=== PATIENT | female | born 1970 | race Caucasian/White ===

== ENCOUNTER 2016-10-18 02:36 | Emergency (ER) | payer OTHER ==
[2016-10-18 04:48] LABS: BASOPHIL 1.5 % (0-2); EOSINOPHIL 8.8 % (0-5); HGB 7.6 g/dl (12.5-16.0); LYMPHOCYTE 37.3 % (15-48); MCH 32.9 pg (25.0-31.0); MCHC 34.5 g/dL (32.0-36.0); MCV 95.2 fL (78.0-100.0); MONOCYTE 10.6 % (0-12); NEUTROPHIL 41.8 % (41-80); PLT 243 K/uL (150-400); RBC 2.31 M/uL (4.20-5.40); RDW 18.2 % (11.5-14.0); WBC 5.2 K/uL (4.0-10.5)
[2016-10-18 04:59] LABS: INR 1.08 (0.9-1.2); PROTHROMBIN TIME 13.6 SECONDS (11.7-14.0); PTT 29.7 SECONDS (23.2-31.4)
[2016-10-18 05:06] LABS: ALBUMIN 3.2 g/dL (3.5-5.0); BILIRUBIN - TOTAL 0.2 mg/dL (0.1-1.0); CREATININE 0.9 mg/dL (0.5-1.0); GLOBULIN (CALCULATION) 2.9 g/dL (2.2-4.2); POTASSIUM 3.2 mmol/L (3.5-5.1); TOTAL PROTEIN 6.1 g/dL (6.4-8.3)
== END 2016-10-18 07:32 | disposition home or self-care (01) ==
LOC: FER 02:36
PROVIDERS: Emergency Medicine Emergency Medical Services
DX: R60.0 Localized edema (principal); F10.20 Alcohol dependence, uncomplicated; D64.9 Anemia, unspecified; I10 Essential (primary) hypertension; E78.5 Hyperlipidemia, unspecified; Y90.8 Blood alcohol level of 240 mg/100 ml or more; Z86.73 Personal history of transient ischemic attack (TIA), and cerebral infarction without residual deficits; Z90.49 Acquired absence of other specified parts of digestive tract; Z88.1 Allergy status to other antibiotic agents; Z79.899 Other long term (current) drug therapy
CPT/HCPCS: 36415; 80053; 85025; 85610; 85730; G0480; J3420

== ENCOUNTER → 2016-11-22 | Day surgery (SDC) | payer OTHER ==
[~2016-11-22] VITALS: Ht 170.2 cm; Wt 65.9 kg
== END | disposition home or self-care (01) ==
LOC: FAS 10:00
DX: K29.50 Unspecified chronic gastritis without bleeding (principal); K25.9 Gastric ulcer, unspecified as acute or chronic, without hemorrhage or perforation; K20.9 Esophagitis, unspecified; K58.9 Irritable bowel syndrome, unspecified; I10 Essential (primary) hypertension; F10.10 Alcohol abuse, uncomplicated; J30.9 Allergic rhinitis, unspecified; R74.8 Abnormal levels of other serum enzymes; M19.90 Unspecified osteoarthritis, unspecified site; Z79.899 Other long term (current) drug therapy; F31.9 Bipolar disorder, unspecified; E78.00 Pure hypercholesterolemia, unspecified; E03.9 Hypothyroidism, unspecified; G47.00 Insomnia, unspecified; Z88.2 Allergy status to sulfonamides; Z88.1 Allergy status to other antibiotic agents
CPT/HCPCS: 84703; 88305; 88312; J2405; J2704

== ENCOUNTER 2020-06-07 02:08 | Emergency (ER) | payer OTHER ==
[~2020-06-07 02:08] MED LIST: ACETAMINOPHEN500 M1 PO; ALDACTONE25 MG PO; ANUCORT-HC25 MG PR; AUGMENTIN 875-1 EACH PO; BACTRIM DS TAB1 EACH PO; BENTYL10 MG PO; CERTAGEN1 EACH PO; CLARITIN10 MG PO; COLACE100 MG PO; DICLOFENAC SODI75 MG PO; FEOSOL325 MG PO; GABAPENTIN800 MG PO; IRON INFUSION; KEFLEX500 MG PO; LASIX20 MG PO; LEVAQUIN500 MG PO; LEXAPRO20 MG PO; LIDOCAINE30 G1 TOP; LISINOPRIL-HCT1 EAC2 PO; LISINOPRIL-HCT1 EACH PO; MACROBID100 MG PO; MOBIC7.5 MG PO; NEURONTIN300 M1 PO; NEURONTIN300 MG PO; NITROFURANTOIN100 M1 PO; NORCO 5-325 TA1 EACH PO; NORVASC5 MG PO; OMEPRAZOLE 20MG20 MG PO; PANTOPRAZOLE SO40 MG PO; PEPCID AC20 MG PO; PERCOCET 7.5-31 EACH PO; PHENERGAN25 M1 PO; PRINIVIL10 MG PO; PROCTOCREAM-HC30 GM PR; PYRIDIUM100 MG PO; SINGULAIR10 MG PO; ULTRAM50 MG PO; VENLAFAXINE H37.5 MG PO; ZOFRAN4 MG PO; ZOFRAN4 MG SL; ZOFRAN8 MG PO
[2020-06-07 04:14] LABS: BASOPHIL 0.9 % (0-2); EOSINOPHIL 1.9 % (0-5); HCT 26.4 % (37.0-47.0); LYMPHOCYTE 41.2 % (15-48); MCH 34.4 pg (25.0-31.0); MCHC 34.1 g/dL (32.0-36.0); MCV 100.8 fL (78.0-100.0); MONOCYTE 9.5 % (0-12); NEUTROPHIL 46.3 % (41-80); NRBC 0; PLT 341 K/uL (150-400); RBC 2.62 M/uL (4.20-5.40); RDW 15.3 % (11.5-14.0); WBC 5.4 K/uL (4.0-10.5)
[2020-06-07 04:25] LABS: INR 1.07 (0.9-1.2); PROTHROMBIN TIME 13.2 SECONDS (11.4-13.6); PTT 27.5 SECONDS (22.2-34.7)
[2020-06-07 04:37] LABS: ALBUMIN 3.5 g/dL (3.4-5.0); ALKALINE PHOSHATASE 135 U/L (46-116); ALT 39 U/L (14-59); AST 41 U/L (15-37); BILIRUBIN - TOTAL 0.2 mg/dL (0.2-1.0); BUN 14 mg/dL (7-18); BUN/CREAT RATIO (CALC) 8.6 RATIO; C-REACTIVE PROTEIN < 0.20 mg/dL (<=0.90); CHLORIDE 95 mmol/L (98-107); CO2 (BICARBONATE) 27 mmol/L (21-32); CPK 121 U/L (26-192); CREATININE 1.63 mg/dL (0.51-0.95); GLOBULIN (CALCULATION) 4.8 g/dL; GLUCOSE 94 mg/dL (74-106); TOTAL PROTEIN 8.3 g/dL (6.4-8.2)
[2020-06-07 05:01] LABS: BILIRUBIN NEGATIVE (NEGATIVE); BLOOD NEGATIVE Ery/uL (NEGATIVE); CLARITY CLEAR (CLEAR); COLOR YELLOW (YELLOW); ECSTASY (MDMA) NEGATIVE (NEGATIVE); GLUCOSE (U) NORMAL (NORMAL); LEUKOCYTES NEGATIVE Leu/uL (NEGATIVE); MARIJUANA (THC) NEGATIVE (NEGATIVE); METHADONE NEGATIVE (NEGATIVE); NITRITE NEGATIVE (NEGATIVE); OPIATES NEGATIVE (NEGATIVE); PROTEIN NEGATIVE (NEGATIVE); UROBILINOGEN 0.2 mg/dL (0.2-1.0); pH 5.5 (5.0-9.0)
[2020-06-07 05:02] LABS: AMPHETAMINES NEGATIVE (NEGATIVE); BARBITURATES NEGATIVE (NEGATIVE); OXYCODONE NEGATIVE (NEGATIVE)
[2020-07-07] MEDS ORDERED: METHOCARBAMOL500 MG PO (12:49)
[2020-07-07] MEDS ORDERED: DICLOFENAC SODI50 MG PO (12:49)
[2020-07-07] MEDS ORDERED: GABAPENTIN800 MG PO (12:49)
[2020-08-21] MEDS ORDERED: LIDOCAINE PAIN1 EACH TOP (10:11)
== END 2020-06-07 10:42 | disposition home or self-care (01) ==
LOC: FER 02:08
PROVIDERS: Emergency Medicine Emergency Medical Services
DX: S06.9X9A Unspecified intracranial injury with loss of consciousness of unspecified duration, initial encounter (principal); S22.088A Other fracture of T11-T12 vertebra, initial encounter for closed fracture; S00.81XA Abrasion of other part of head, initial encounter; I10 Essential (primary) hypertension; F41.9 Anxiety disorder, unspecified; F32.9 Major depressive disorder, single episode, unspecified; F10.129 Alcohol abuse with intoxication, unspecified; Z88.1 Allergy status to other antibiotic agents; W01.0XXA Fall on same level from slipping, tripping and stumbling without subsequent striking against object, initial encounter; Y92.009 Unspecified place in unspecified non-institutional (private) residence as the place of occurrence of the external cause; Y90.8 Blood alcohol level of 240 mg/100 ml or more; Z79.899 Other long term (current) drug therapy; Z20.822 Contact with and (suspected) exposure to COVID-19
CPT/HCPCS: 36415; 70450; 71045; 72125; 72128; 72131; 80053; 80305; 81003; 82550; 84484; 85025; 85610; 85730; 86140; 93005; G0480; J1100; J1885; J2405; J3411; J7030; U0002

== ENCOUNTER 2020-08-10 04:08 | Emergency (ER) | payer OTHER ==
[~2020-08-10 04:08] MED LIST changes: +DICLOFENAC SODI50 MG PO; +METHOCARBAMOL500 MG PO
[2020-08-10 04:44] LABS: EOSINOPHIL 1.9 % (0-5); HCT 22.9 % (37.0-47.0); HGB 7.4 g/dl (12.5-16.0); LYMPHOCYTE 39.7 % (15-48); MCH 34.3 pg (25.0-31.0); MCHC 32.3 g/dL (32.0-36.0); MONOCYTE 7.7 % (0-12); MPV 10.2 fL (6.0-9.5); NEUTROPHIL 49.4 % (41-80); NRBC 0; PLT 321 K/uL (150-400); RBC 2.16 M/uL (4.20-5.40); RDW 14.7 % (11.5-14.0); WBC 5.7 K/uL (4.0-10.5)
[2020-08-10 04:50] LABS: BILIRUBIN NEGATIVE (NEGATIVE); BLOOD NEGATIVE Ery/uL (NEGATIVE); CLARITY CLEAR (CLEAR); COLOR YELLOW (YELLOW); GLUCOSE (U) NORMAL (NORMAL); LEUKOCYTES TRACE Leu/uL (NEGATIVE); NITRITE NEGATIVE (NEGATIVE); PROTEIN NEGATIVE (NEGATIVE); SPECIFIC GRAVITY 1.015 (1.001-1.030); UROBILINOGEN 0.2 mg/dL (0.2-1.0); pH 5.5 (5.0-9.0)
[2020-08-10 04:53] LABS: ALBUMIN 2.8 g/dL (3.4-5.0); BILIRUBIN - TOTAL 0.2 mg/dL (0.2-1.0); BUN/CREAT RATIO (CALC) 29.9 RATIO; CREATININE 0.87 mg/dL (0.51-0.95); GLOBULIN (CALCULATION) 3.9 g/dL; POTASSIUM 4.5 mmol/L (3.5-5.1); TOTAL PROTEIN 6.7 g/dL (6.4-8.2)
[2020-08-10 04:55] LABS: AMPHETAMINES NEGATIVE (NEGATIVE); BARBITURATES NEGATIVE (NEGATIVE); ECSTASY (MDMA) NEGATIVE (NEGATIVE); MARIJUANA (THC) NEGATIVE (NEGATIVE); METHADONE NEGATIVE (NEGATIVE); OPIATES NEGATIVE (NEGATIVE); OXYCODONE NEGATIVE (NEGATIVE)
[2020-08-10 04:58] LABS: SQUAMOUS EPITHELIAL CELLS RARE; URINARY WBC RARE
[2020-08-21] MEDS ORDERED: LIDOCAINE PAIN1 EACH TOP (10:11)
== END 2020-08-10 06:45 | disposition home or self-care (01) ==
LOC: FER 04:08
PROVIDERS: Emergency Medicine
DX: K29.20 Alcoholic gastritis without bleeding (principal); F10.129 Alcohol abuse with intoxication, unspecified; D64.9 Anemia, unspecified; I10 Essential (primary) hypertension; F17.200 Nicotine dependence, unspecified, uncomplicated; Z88.1 Allergy status to other antibiotic agents; Y90.8 Blood alcohol level of 240 mg/100 ml or more; Z79.1 Long term (current) use of non-steroidal anti-inflammatories (NSAID); Z79.899 Other long term (current) drug therapy
CPT/HCPCS: 36415; 80053; 80305; 81001; 82150; 83690; 85025; 99284; C9113; G0480; J1885; J2270; J2405; J3411; J7120

== ENCOUNTER 2020-08-11 02:58 | Emergency (ER) | payer OTHER ==
[2020-08-11 03:30] LABS: BASOPHIL 0.9 % (0-2); EOSINOPHIL 1.5 % (0-5); HCT 23.8 % (37.0-47.0); HGB 7.6 g/dl (12.5-16.0); LYMPHOCYTE 33.2 % (15-48); MCHC 31.9 g/dL (32.0-36.0); MCV 109.7 fL (78.0-100.0); MONOCYTE 12.5 % (0-12); NEUTROPHIL 51.6 % (41-80); NRBC 0; PLT 334 K/uL (150-400); RBC 2.17 M/uL (4.20-5.40); RDW 14.7 % (11.5-14.0); WBC 6.8 K/uL (4.0-10.5)
[2020-08-11 03:51] LABS: ALKALINE PHOSHATASE 133 U/L (46-116); ALT 34 U/L (14-59); AST 37 U/L (15-37); BILIRUBIN - TOTAL 0.2 mg/dL (0.2-1.0); BUN 23 mg/dL (7-18); BUN/CREAT RATIO (CALC) 22.5 RATIO; CHLORIDE 104 mmol/L (98-107); CO2 (BICARBONATE) 27 mmol/L (21-32); CREATININE 1.02 mg/dL (0.51-0.95); GLOBULIN (CALCULATION) 3.7 g/dL; GLUCOSE 148 mg/dL (74-106); POTASSIUM 3.6 mmol/L (3.5-5.1); TOTAL PROTEIN 6.7 g/dL (6.4-8.2)
[2020-08-11 03:54] LABS: ACETAMINOPHEN (TYLENOL) < 2.0 ug/mL (10.0-30.0)
[2020-08-11 06:34] LABS: BILIRUBIN NEGATIVE (NEGATIVE); BLOOD NEGATIVE Ery/uL (NEGATIVE); CLARITY CLEAR (CLEAR); COLOR YELLOW (YELLOW); GLUCOSE (U) NORMAL (NORMAL); LEUKOCYTES NEGATIVE Leu/uL (NEGATIVE); NITRITE NEGATIVE (NEGATIVE); PROTEIN NEGATIVE (NEGATIVE); SPECIFIC GRAVITY <=1.005 (1.001-1.030); UROBILINOGEN 0.2 mg/dL (0.2-1.0)
[2020-08-11 06:38] LABS: AMPHETAMINES NEGATIVE (NEGATIVE); BARBITURATES NEGATIVE (NEGATIVE); ECSTASY (MDMA) NEGATIVE (NEGATIVE); MARIJUANA (THC) NEGATIVE (NEGATIVE); METHADONE NEGATIVE (NEGATIVE); OPIATES POSITIVE (NEGATIVE); OXYCODONE NEGATIVE (NEGATIVE)
[2020-08-21] MEDS ORDERED: LIDOCAINE PAIN1 EACH TOP (10:11)
== END 2020-08-11 06:42 | disposition home or self-care (01) ==
LOC: FER 02:58
PROVIDERS: Emergency Medicine Emergency Medical Services
DX: F10.129 Alcohol abuse with intoxication, unspecified (principal); M25.551 Pain in right hip; I10 Essential (primary) hypertension; M50.322 Other cervical disc degeneration at C5-C6 level; G89.29 Other chronic pain; Z79.891 Long term (current) use of opiate analgesic; Y90.8 Blood alcohol level of 240 mg/100 ml or more
CPT/HCPCS: 36415; 70450; 72125; 72170; 73502; 73552; 80053; 80305; 81003; 85025; 87076; 87088; 87186; 93005; G0480; J1170; J1885; J2405; J3411; J7030